=== PATIENT | male | born 1965 | race Two or more races ===

== ENCOUNTER 2017-12-31 09:38 | Emergency (ER) | payer SELFPAY ==
[2017-12-31] MEDS ORDERED: Sodium Chloride 0.9% 10 ML Syringe FLUSH PRN (09:48)
[2017-12-31] MEDS ORDERED: Labetalol 100 MG/20 ML MDV IVPUSH ONE (10:03)
--- NOTE | 2017-12-31 11:32 | EDM.PDOC ---
ED HPI GENERAL MEDICAL PROBLEM - General Chief Complaint: Neuro Symptoms/Deficits Stated Complaint: DIZZINESS Time Seen by Provider: 12/31/17 09:41 Source of Information: Reports: Patient, Provider History Limitations: Reports: No Limitations - History of Present Illness INITIAL COMMENTS - FREE TEXT/NARRATIVE: The patient was sent by Dr De Los Santos from the walk in clinic. The patient needs a CT of his head. Last evening the patient said he had a headache, dizziness, trouble finding his words, abdominal pain, nausea and vomiting. That has all gotten better except he still has a headache and some dizziness. He was worried he may have eaten some bad food last night. He has no numbness or weakness. He has no chest pain or shortness of breath. He has a history of hypertension and he did not take his medication this morning. His BP was elevated to 205 when he arrived here. He said he had something similar happen 2 years ago and a doctor diagnosed him with H-pylori. Onset: Gradual Duration: Day(s): (Last night) Location: Reports: Head Quality: Reports: Ache Severity: Mild Improves with: Reports: None Worsens with: Reports: None Associated Symptoms: Reports: Headaches, Nausea/Vomiting. Denies: Chest Pain, Cough, Fever/Chills, Shortness of Breath - Related Data Allergies Allergy/AdvReac Type Severity Reaction Status Date / Time No Known Allergies Allergy Verified 12/31/17 09:53 Home Meds: Home Meds Amoxicillin 1,000 mg PO BID #40 tab 12/31/17 [Rx] Clarithromycin 500 mg PO BID #20 tablet 12/31/17 [Rx] LORazepam [Ativan] 1 mg PO BEDTIME PRN #10 tablet 12/31/17 [Rx] Omeprazole Magnesium [Prilosec Otc] 20 mg PO DAILY #20 tablet. 12/31/17 [Rx] Past Medical History Cardiovascular History: Reports: Hypertension Gastrointestinal History: Reports: Helicobacter Pylori - Infectious Disease History Infectious Disease History: Reports: Helicobacter Pylori Social & Family History - Tobacco Use Smoking Status *Q: Current Some Day Smoker Years of Tobacco use: 10 Packs/Tins Daily: 0.1 - Caffeine Use Caffeine Use: Reports: Coffee, Energy Drinks, Soda - Recreational Drug Use Recreational Drug Use: No ED ROS GENERAL - Review of Systems Review Of Systems: See Below Constitutional: Reports: No Symptoms HEENT: Reports: No Symptoms Respiratory: Reports: No Symptoms Cardiovascular: Reports: No Symptoms Endocrine: Reports: No Symptoms GI/Abdominal: Reports: Abdominal Pain, Nausea, Vomiting : Reports: No Symptoms Musculoskeletal: Reports: No Symptoms ED EXAM, NEURO - Physical Exam Exam: See Below Exam Limited By: No Limitations General Appearance: Alert, No Apparent Distress Ears: Normal External Exam Nose: Normal Inspection Head Exam: Atraumatic, Normocephalic Neck: Normal Inspection Respiratory/Chest: No Respiratory Distress, Lungs Clear, Normal Breath Sounds Cardiovascular: Regular Rate, Rhythm, No Edema, No Murmur GI/Abdominal: Soft, Non-Tender, No Organomegaly, No Mass Neurological: Alert, No Motor/Sensory Deficits, Oriented x 3, Other (No nystagmus) EKG INTERPRETATION EKG Date: 12/31/17 Time: 10:08 Rhythm: Other (sinus bradycardia) Rate (Beats/Min): 52 [place]: Normal P-Wave: Present QRS: Normal ST-T: Elevated (normal early repol) OR/PQ Interval: 1st degree HB Course - Vital Signs Last Recorded V/S: Last Vital Signs Temp 96.9 F 12/31/17 09:43 Pulse 67 12/31/17 09:43 Resp 14 12/31/17 09:43 BP 189/107 H 12/31/17 09:43 Pulse Ox 99 12/31/17 09:43 - Orders/Labs/Meds Orders: Active Orders 24 hr Category Date Time Status Cardiac Monitoring [RC] . DIRECTED Care 12/31/17 09:49 Active EKG Documentation Completion [RC] STAT Care 12/31/17 09:53 Active Peripheral IV Care [RC] . DIRECTED Care 12/31/17 09:49 Active Head wo Cont [CT] Stat Exams 12/31/17 09:53 Taken Sodium Chloride 0.9% [Saline Flush] Med 12/31/17 09:48 Active 10 ml FLUSH ASDIRECTED PRN Peripheral IV Insertion Adult [OM.PC] Stat Oth 12/31/17 09:48 Ordered Medication Orders Sodium Chloride (Saline Flush) 10 ml FLUSH ASDIRECTED PRN PRN Reason: Keep Vein Open Labs: Laboratory Tests 12/31/17 12/31/17 12/31/17 Range/Units 09:47 09:47 09:47 WBC 6.49 (4.23-9.07) K/mm3 RBC 5.49 (4.63-6.08) M/mm3 Hgb 16.6 (13.7-17.5) gm/L Hct 49.6 (40.1-51.0) % MCV 90.3 (79.0-92.2) fl MCH 30.2 (25.7-32.2) pg MCHC 33.5 (32.2-35.5) g/dl RDW Std Deviation 46.2 H (35.1-43.9) fL Plt Count 188 (163-337) K/mm3 MPV 10.6 (9.4-12.3) fl Neut % (Auto) 66.1 (34.0-67.9) % Lymph % (Auto) 23.4 (21.8-53.1) % [place] % (Auto) 8.0 (5.3-12.2) % Eos % (Auto) 1.8 (0.8-7.0) Baso % (Auto) 0.5 (0.1-1.2) % Neut # (Auto) 4.29 (1.78-5.38) K/mm3 Lymph # (Auto) 1.52 (1.32-3.57) K/mm3 [place] # (Auto) 0.52 (0.30-0.82) K/mm3 Eos # (Auto) 0.12 (0.04-0.54) K/mm3 Baso # (Auto) 0.03 (0.01-0.08) K/mm3 Sodium 139 (136-145) mEq/L Potassium 3.6 (3.5-5.1) mEq/L Chloride 104 (98-107) mEq/L Carbon Dioxide 29 (21-32) mEq/L Anion Gap 9.6 (5-15) BUN 21 H (7-18) mg/dL Creatinine 1.1 (0.7-1.3) mg/dL Est Cr Clr Drug Dosing 70.89 mL/min Estimated GFR (MDRD) > 60 (>60) mL/min BUN/Creatinine Ratio 19.1 H (14-18) Glucose 99 (74-106) mg/dL Calcium 9.2 (8.5-10.1) mg/dL Total Bilirubin 0.6 (0.2-1.0) mg/dL AST 21 (15-37) U/L ALT 24 (16-63) U/L Alkaline Phosphatase 75 (46-116) U/L Troponin I < 0.017 (0.00-0.056) ng/mL Total Protein 8.3 H (6.4-8.2) g/dl Albumin 4.4 (3.4-5.0) g/dl Globulin 3.9 gm/dL Albumin/Globulin Ratio 1.1 (1-2) Urine Color (Yellow) Urine Appearance (Clear) Urine pH (5.0-8.0) Ur Specific [place] (1.005-1.030) Urine Protein (Negative) Urine Glucose (UA) (Negative) Urine Ketones (Negative) Urine Occult Blood (Negative) Urine Nitrite (Negative) Urine Bilirubin (Negative) Urine Urobilinogen (0.2-1.0) Ur Leukocyte Esterase (Negative) Urine RBC (0-5) /hpf Urine WBC (0-5) /hpf Ur Epithelial Cells (0-5) /hpf Urine Bacteria (FEW) /hpf Urine Mucus (FEW) /hpf H. pylori IgG Antibody Positive H (NEGATIVE) 12/31/17 Range/Units 10:15 WBC (4.23-9.07) K/mm3 RBC (4.63-6.08) M/mm3 Hgb (13.7-17.5) gm/L Hct (40.1-51.0) % MCV (79.0-92.2) fl MCH (25.7-32.2) pg MCHC (32.2-35.5) g/dl RDW Std Deviation (35.1-43.9) fL Plt Count (163-337) K/mm3 MPV (9.4-12.3) fl Neut % (Auto) (34.0-67.9) % Lymph % (Auto) (21.8-53.1) % [place] % (Auto) (5.3-12.2) % Eos % (Auto) (0.8-7.0) Baso % (Auto) (0.1-1.2) % Neut # (Auto) (1.78-5.38) K/mm3 Lymph # (Auto) (1.32-3.57) K/mm3 [place] # (Auto) (0.30-0.82) K/mm3 Eos # (Auto) (0.04-0.54) K/mm3 Baso # (Auto) (0.01-0.08) K/mm3 Sodium (136-145) mEq/L Potassium (3.5-5.1) mEq/L Chloride (98-107) mEq/L Carbon Dioxide (21-32) mEq/L Anion Gap (5-15) BUN (7-18) mg/dL Creatinine (0.7-1.3) mg/dL Est Cr Clr Drug Dosing mL/min Estimated GFR (MDRD) (>60) mL/min BUN/Creatinine Ratio (14-18) Glucose (74-106) mg/dL Calcium (8.5-10.1) mg/dL Total Bilirubin (0.2-1.0) mg/dL AST (15-37) U/L ALT (16-63) U/L Alkaline Phosphatase (46-116) U/L Troponin I (0.00-0.056) ng/mL Total Protein (6.4-8.2) g/dl Albumin (3.4-5.0) g/dl Globulin gm/dL Albumin/Globulin Ratio (1-2) Urine Color Yellow (Yellow) Urine Appearance Clear (Clear) Urine pH 7.0 (5.0-8.0) Ur Specific [place] 1.020 (1.005-1.030) Urine Protein Negative (Negative) Urine Glucose (UA) Negative (Negative) Urine Ketones Negative (Negative) Urine Occult Blood Trace-intact H (Negative) Urine Nitrite Negative (Negative) Urine Bilirubin Negative (Negative) Urine Urobilinogen 0.2 (0.2-1.0) Ur Leukocyte Esterase Negative (Negative) Urine RBC 0-5 (0-5) /hpf Urine WBC Not seen (0-5) /hpf Ur Epithelial Cells 0-5 (0-5) /hpf Urine Bacteria Not seen (FEW) /hpf Urine Mucus Not seen (FEW) /hpf H. pylori IgG Antibody (NEGATIVE) Meds: Medications Generic Name Dose Route Start Last Admin Trade Name Freq PRN Reason Stop Dose Admin Sodium Chloride 10 ml 12/31/17 09:48 Saline Flush FLUSH ASDIRECTED PRN Keep Vein Open Discontinued Medications Generic Name Dose Route Start Last Admin Trade Name Freq PRN Reason Stop Dose Admin Labetalol HCl 20 mg 12/31/17 10:03 12/31/17 12:05 Normodyne IVPUSH 12/31/17 10:04 Not Given ONETIME ONE Protocol - Re-Assessments/Exams Free Text/Narrative Re-Assessment/Exam: 12/31/17 11:54 I ordered an IV saline lock, EKG, head CT, labs, and labetolol. His BP came down on its own so I did not give the labetolol. His EKG shows a sinus bradycardia with no acute changes. His head CT shows no hemorrhage and no evidence of acute infarction. His CBC looks good. His troponin was negative. His UA was normal. His H-pylori was positive. 12/31/17 12:10 The patient is having still GI symptoms. I know the IGg can be up for months to a couple years but with him having symptoms I feel it is worth treating him again. He is feeling much better now. His BP is down to 128 systolic. His headache is gone. I do not feel this is a stroke. Departure - Departure Time of Disposition: 12:15 Disposition: Home, Self-Care 01 Condition: Good Clinical Impression: Helicobacter positive gastritis Headache Qualifiers: Headache type: unspecified Headache chronicity pattern: acute headache Intractability: not intractable Qualified Code(s): R51 - Headache Hypertension Qualifiers: Hypertension type: essential hypertension Qualified Code(s): I10 - Essential ( primary) hypertension - Discharge Information *PRESCRIPTION DRUG MONITORING PROGRAM REVIEWED*: No *COPY OF PRESCRIPTION DRUG MONITORING REPORT IN PATIENT [place]: No Prescriptions: Amoxicillin 1,000 mg PO BID #40 tab Clarithromycin 500 mg PO BID #20 tablet LORazepam [Ativan] 1 mg PO BEDTIME PRN #10 tablet PRN Reason: Sleep Omeprazole Magnesium [Prilosec Otc] 20 mg PO DAILY #20 tablet. Referrals: PCP,None [Primary Care Provider] - Simone Mckeon PA [Physician [employer]] - 2 Weeks Forms: ED Department Discharge Additional Instructions: Take the antibiotics 2 times per day for 10 days. Take the prilosec daily for 20 days. Take the ativan 1mg at night to help you sleep. Follow up with Simone Mckeon in a couple weeks. Please return if you are worse. - My Orders Last 24 Hours: My Active Orders 12/31/17 09:48 Sodium Chloride 0.9% [Saline Flush] 10 ml FLUSH ASDIRECTED PRN Peripheral IV Insertion Adult [OM.PC] Stat 12/31/17 09:49 Cardiac Monitoring [RC] . DIRECTED Peripheral IV Care [RC] . DIRECTED 12/31/17 09:53 EKG Documentation Completion [RC] STAT Head wo Cont [CT] Stat - Assessment/Plan Last 24 Hours: My Active Orders 12/31/17 09:48 Sodium Chloride 0.9% [Saline Flush] 10 ml FLUSH ASDIRECTED PRN Peripheral IV Insertion Adult [OM.PC] Stat 12/31/17 09:49 Cardiac Monitoring [RC] . DIRECTED Peripheral IV Care [RC] . DIRECTED 12/31/17 09:53 EKG Documentation Completion [RC] STAT Head wo Cont [CT] Stat
--- NOTE | 2018-01-01 10:40 | CT ---
Head CT Technique: Multiple axial sections through the brain were obtained. Intravenous contrast was not utilized. Comparison: No prior intracranial imaging. Findings: Ventricles along with basal cisterns and sulci over convexities are within normal limits for the patient's age. No abnormal parenchymal densities are seen. No evidence of intracranial hemorrhage. No midline shift or mass effect is seen. Bony structures appear within normal limits. Visualized paranasal sinuses are clear. Impression: 1. Nothing acute is seen on noncontrast head CT exam. Diagnostic code #1 I agree with preliminary report from [facility], finalized on 3658, 11:10 AM Central Time
== END 2017-12-31 12:41 | disposition home or self-care (01) ==
LOC: JD.ED 09:38
DX: K29.60 Other gastritis without bleeding (principal); B96.81 Helicobacter pylori [H. pylori] as the cause of diseases classified elsewhere; R51 Headache; I10 Essential (primary) hypertension; F17.210 Nicotine dependence, cigarettes, uncomplicated
CPT/HCPCS: 36415; 70450; 80053; 81001; 84484; 85025; 86677; 93005; 99285; J3490; 93010; 99284-25

== ENCOUNTER 2018-07-07 06:33 | Emergency (ER) | payer SELFPAY ==
[2018-07-07] MEDS ORDERED: diazePAM 5 MG/ML-2ml Syringe IV ONE (07:17)
[2018-07-07] MEDS ORDERED: methylPREDNISolone Sodium Succinate 125 MG/2 ML SDV IM ONE (07:17)
[2018-07-07] MEDS ORDERED: Ondansetron 4 MG/2 ML SDV IVPUSH ONE (07:17)
[2018-07-07] MEDS ORDERED: Sodium Chloride 0.9% 500 ML IV ONE (07:18)
[2018-07-07] MEDS: Sodium Chloride 0.9% 10 ML Syringe FLUSH PRN ×2 (07:26→08:28)
--- NOTE | 2018-07-07 07:54 | EDM.PDOC ---
ED HPI GENERAL MEDICAL PROBLEM - General Chief Complaint: Syncope Stated Complaint: SYNCOPE Time Seen by Provider: 07/07/18 07:02 Source of Information: Reports: Patient, RN Notes Reviewed - History of Present Illness INITIAL COMMENTS - FREE TEXT/NARRATIVE: 53-year-old male with onset of vertigo type dizziness yesterday during the day. That became much worse during the night. He states he had difficulty sleeping. Having his eyes open and moving does make the vertigo type dizziness worse. He has had this in the past. He has not been otherwise ill recently. He did have moderate headache last evening, mild headache today. He does take medication for hypertension, not able to take that this morning due to the nausea vomiting. No chest or abdominal pain other than from the vomiting. No diarrhea, fever or chills. - Related Data Allergies Allergy/AdvReac Type Severity Reaction Status Date / Time No Known Allergies Allergy Verified 07/07/18 06:48 Home Meds: Home Meds . [Unable to Verify Home Med List] 07/07/18 [History] Past Medical History Cardiovascular History: Reports: Hypertension Gastrointestinal History: Reports: Helicobacter Pylori - Infectious Disease History Infectious Disease History: Reports: Helicobacter Pylori Social & Family History - Tobacco Use Smoking Status *Q: Never Smoker - Caffeine Use Caffeine Use: Reports: Coffee, Energy Drinks, Soda ED ROS GENERAL - Review of Systems Review Of Systems: See Below Constitutional: Denies: Fever, Chills, Diaphoresis HEENT: Reports: Other (He has had some tinnitus). Denies: Ear Discharge, Ear Pain, Throat Pain Respiratory: Denies: Shortness of Breath, Wheezing Cardiovascular: Denies: Chest Pain GI/Abdominal: Denies: Abdominal Pain Musculoskeletal: Denies: Neck Pain Skin: Denies: Rash Neurological: Reports: Dizziness, Headache, Difficulty Walking (Moving makes the vertigo, nausea vomiting worse). Denies: Trouble Speaking, Weakness ED EXAM, DIZZINESS - Physical Exam Exam: See Below General Appearance: Alert, Moderate Distress Eye Exam: Bilateral Eye: PERRL Nystagmus: constant (Present just with eye opening, prefers to rest with his eyes closed) Ears: Normal External Exam, Normal Canal, Normal TMs Throat/Mouth: Normal Inspection, Normal Oropharynx Head Exam: No: Facial Swelling Vertigo: constant Neck: Supple Respiratory/Chest: No Respiratory Distress, Lungs Clear, Normal Breath Sounds Cardiovascular: Bradycardia Neurological: Alert, No Motor/Sensory Deficits Extremities: Normal Inspection, Normal Range of Motion. No: Pedal Edema, Leg Pain Skin Exam: Warm, Dry, Normal Color Course - Vital Signs Last Recorded V/S: Last Vital Signs Temp 97.5 F 07/07/18 06:49 Pulse 53 L 07/07/18 06:49 Resp 18 07/07/18 06:49 BP 164/100 H 07/07/18 06:49 Pulse Ox 100 07/07/18 06:49 - Orders/Labs/Meds Orders: Active Orders 24 hr Category Date Time Status Peripheral IV Care [RC] . DIRECTED Care 07/07/18 07:17 Active Potassium Chloride [KCl 10 MEQ in Water 100 ML] 10 meq Med 07/07/18 08:24 Active Premix Bag 1 bag IV ASDIRECTED Sodium Chloride 0.9% [Normal Saline] 1,000 ml Med 07/07/18 08:30 Active IV ASDIRECTED Sodium Chloride 0.9% [Saline Flush] Med 07/07/18 07:15 Active 10 ml FLUSH ASDIRECTED PRN Peripheral IV Insertion Adult [OM.PC] Stat Oth 07/07/18 07:16 Ordered Medication Orders Potassium Chloride 10 meq/ (Premix) 100 mls @ 50 mls/hr IV ASDIRECTED ONE Stop: 07/07/18 10:23 Last Admin: 07/07/18 08:28 Dose: 50 mls/hr Sodium Chloride (Normal Saline) 1,000 mls @ 150 mls/hr IV ASDIRECTED ARNAUD Sodium Chloride (Saline Flush) 10 ml FLUSH ASDIRECTED PRN PRN Reason: Keep Vein Open Last Admin: 07/07/18 08:28 Dose: 10 ml Admin: 07/07/18 07:26 Dose: 10 ml Labs: Laboratory Tests 07/07/18 07/07/18 Range/Units 07:20 07:20 WBC 6.05 (4.23-9.07) K/mm3 RBC 5.21 (4.63-6.08) M/mm3 Hgb 15.9 (13.7-17.5) gm/L Hct 46.7 (40.1-51.0) % MCV 89.6 (79.0-92.2) fl MCH 30.5 (25.7-32.2) pg MCHC 34.0 (32.2-35.5) g/dl RDW Std Deviation 47.2 H (35.1-43.9) fL Plt Count 177 (163-337) K/mm3 MPV 9.9 (9.4-12.3) fl Neut % (Auto) 88.9 H (34.0-67.9) % Lymph % (Auto) 7.8 L (21.8-53.1) % [place] % (Auto) 2.8 L (5.3-12.2) % Eos % (Auto) 0.3 L (0.8-7.0) Baso % (Auto) 0.2 (0.1-1.2) % Neut # (Auto) 5.38 (1.78-5.38) K/mm3 Lymph # (Auto) 0.47 L (1.32-3.57) K/mm3 [place] # (Auto) 0.17 L (0.30-0.82) K/mm3 Eos # (Auto) 0.02 L (0.04-0.54) K/mm3 Baso # (Auto) 0.01 (0.01-0.08) K/mm3 Manual Slide Review Normal smear Sodium 138 (136-145) mEq/L Potassium 2.9 L (3.5-5.1) mEq/L Chloride 102 (98-107) mEq/L Carbon Dioxide 24 (21-32) mEq/L Anion Gap 14.9 (5-15) BUN 17 (7-18) mg/dL Creatinine 1.0 (0.7-1.3) mg/dL Est Cr Clr Drug Dosing TNP Estimated GFR (MDRD) > 60 (>60) mL/min BUN/Creatinine Ratio 17.0 (14-18) Glucose 160 H (74-106) mg/dL Calcium 8.5 (8.5-10.1) mg/dL Total Bilirubin 0.6 (0.2-1.0) mg/dL AST 29 (15-37) U/L ALT 43 (16-63) U/L Alkaline Phosphatase 81 (46-116) U/L Total Protein 8.3 H (6.4-8.2) g/dl Albumin 4.5 (3.4-5.0) g/dl Globulin 3.8 gm/dL Albumin/Globulin Ratio 1.2 (1-2) Meds: Medications Generic Name Dose Route Start Last Admin Trade Name Freq PRN Reason Stop Dose Admin Potassium Chloride 10 meq/ 100 mls @ 50 mls/hr 07/07/18 08:24 07/07/18 08:28 Premix IV 07/07/18 10:23 50 mls/hr ASDIRECTED ONE Administration Sodium Chloride 1,000 mls @ 150 mls/hr 07/07/18 08:30 Normal Saline IV ASDIRECTED ARNAUD Sodium Chloride 10 ml 07/07/18 07:15 07/07/18 08:28 Saline Flush FLUSH 10 ml ASDIRECTED PRN Administration Keep Vein Open Discontinued Medications Generic Name Dose Route Start Last Admin Trade Name Freq PRN Reason Stop Dose Admin Diazepam 2 mg 07/07/18 07:17 07/07/18 07:26 Valium IV 07/07/18 07:18 2 mg ONETIME ONE Administration Sodium Chloride 500 mls @ 999 mls/hr 07/07/18 07:18 07/07/18 07:27 Normal Saline IV 07/07/18 07:48 999 mls/hr .BOLUS ONE Administration Meclizine HCl 12.5 mg 07/07/18 09:44 07/07/18 09:48 Antivert PO 07/07/18 09:45 12.5 mg ONETIME ONE Administration Methylprednisolone Sodium Succinate 125 mg 07/07/18 07:17 07/07/18 07:25 Solu-Medrol IM 07/07/18 07:18 125 mg ONETIME ONE Administration Ondansetron HCl 4 mg 07/07/18 07:17 07/07/18 07:25 Zofran IVPUSH 07/07/18 07:18 4 mg ONETIME ONE Administration - Re-Assessments/Exams Free Text/Narrative Re-Assessment/Exam: 07/07/18 09:00. Feeling somewhat better after initial meds. Potassium is come back very low at 2.9 so have ordered [address] looks good, other labs are good. The eye nystagmus is almost completely resolved. 07/07/18 10:22. Resting comfortably, nystagmus has resolved. Will discharge once potassium has finished infusing. Departure - Departure Time of Disposition: 10:23 Disposition: Home, Self-Care 01 Condition: Fair Clinical Impression: Labyrinthitis Qualifiers: Laterality: unspecified laterality Qualified Code(s): H83.09 - Labyrinthitis, unspecified ear - Discharge Information Referrals: PCP,None [Ordering Only Provider] - Forms: ED Department Discharge, ED Return to Work/School Form Additional Instructions: Rest, move slowly and carefully. The dizziness may take 2 or 3 days to totally go away. If you do suffer severe dizziness best thing to do is just lie down, close your eyes and rest for a while. continue the Antivert medication 12.5 mg twice daily for the next 4 days. That is available at your pharmacy. They sell it [id number] but you will need to ask for it. Follow-up clinic if not back to normal by next Tuesday, return to ED as needed if symptoms worsening in any way. - My Orders Last 24 Hours: My Active Orders 07/07/18 07:15 Sodium Chloride 0.9% [Saline Flush] 10 ml FLUSH ASDIRECTED PRN 07/07/18 07:16 Peripheral IV Insertion Adult [OM.PC] Stat 07/07/18 07:17 Peripheral IV Care [RC] . DIRECTED 07/07/18 08:24 Potassium Chloride [KCl 10 MEQ in Water 100 ML] 10 meq Premix Bag 1 bag IV ASDIRECTED 07/07/18 08:30 Sodium Chloride 0.9% [Normal Saline] 1,000 ml IV ASDIRECTED - Assessment/Plan Last 24 Hours: My Active Orders 07/07/18 07:15 Sodium Chloride 0.9% [Saline Flush] 10 ml FLUSH ASDIRECTED PRN 07/07/18 07:16 Peripheral IV Insertion Adult [OM.PC] Stat 07/07/18 07:17 Peripheral IV Care [RC] . DIRECTED 07/07/18 08:24 Potassium Chloride [KCl 10 MEQ in Water 100 ML] 10 meq Premix Bag 1 bag IV ASDIRECTED 07/07/18 08:30 Sodium Chloride 0.9% [Normal Saline] 1,000 ml IV ASDIRECTED
[2018-07-07] MEDS ORDERED: Potassium Chloride 10 MEQ in Premix Bag 1 BAG IV ONE (08:24)
--- NOTE | 2018-07-07 08:26 | CT ---
Head CT Technique: Multiple axial sections through the brain were obtained. Intravenous contrast was not utilized. Comparison: Previous head CT exam of 12/31/17. Findings: Ventricles along with basal cisterns and sulci over the convexities appear within normal limits for the patient's age. No abnormal parenchymal densities are seen. No evidence of intracranial hemorrhage. No midline shift or mass effect is seen. Visualized sinuses are clear. Bone window settings show no acute calvarial abnormality. Impression: 1. Nothing acute is appreciated on noncontrast head CT study. 2. No significant change is seen from previous head CT exam. Diagnostic code #1
[2018-07-07] MEDS ORDERED: Sodium Chloride 0.9% 1,000 ML IV SCH (08:30)
[2018-07-07] MEDS ORDERED: Meclizine 12.5 MG Tab PO ONE (09:44)
== END 2018-07-07 10:57 | disposition home or self-care (01) ==
LOC: JD.ED 06:33
DX: H83.09 Labyrinthitis, unspecified ear (principal); I10 Essential (primary) hypertension
CPT/HCPCS: 36415; 70450; 80053; 85025; 96361; 96365; 96366; 96372; 96375; 99284; A9270; J2405; J2930; J3360; J3480; J7040